=== PATIENT | male | born 1995 | race Caucasian/White ===

== ENCOUNTER 2018-10-10 09:30 | Emergency (ER) | payer SELFPAY ==
--- NOTE | 2018-10-10 10:57 | RAD ---
TWO VIEW CHEST: INDICATION: Left rib and chest pain. COMPARISON: No comparison. FINDINGS: The lungs appear clear. No infiltrate. Heart and mediastinum unremarkable. The bony thorax appear unremarkable. IMPRESSION: Unremarkable chest. POS: [facility]
== END 2018-10-10 10:32 | disposition home or self-care (01) ==
LOC: ERS 09:30
DX: R07.89 Other chest pain (principal); F17.210 Nicotine dependence, cigarettes, uncomplicated
CPT/HCPCS: 71046

== ENCOUNTER 2018-10-18 22:05 | Emergency (ER) | payer SELFPAY ==
[2018-10-18] MEDS ORDERED: Lidocaine 1% w/Epinephrine 1:100K 20 ML VIAL ONE (23:15)
[2018-10-18] MEDS ORDERED: HYDROcodone/Acetaminophen 5/325 mg Tablet ONE (23:36)
== END 2018-10-18 23:45 | disposition home or self-care (01) ==
LOC: ERS 22:05
DX: L02.412 Cutaneous abscess of left axilla (principal); F17.210 Nicotine dependence, cigarettes, uncomplicated
CPT/HCPCS: 10060; 87070; 87077; 87186; 87205; J2001

== ENCOUNTER 2018-10-20 19:56 | Emergency (ER) | payer SELFPAY | END 2018-10-20 21:34 | disposition home or self-care (01) | LOC: ERS 19:56 | DX: Z48.817 Encounter for surgical aftercare following surgery on the skin and subcutaneous tissue (principal); F17.210 Nicotine dependence, cigarettes, uncomplicated | CPT/HCPCS: 99282 ==